=== PATIENT | female | born 1975 | race Caucasian/White ===

== ENCOUNTER → 2025-09-02 09:46 | Outpatient (REF) | payer BC, SELFPAY | LOC: EMG 09:46 | PROVIDERS: ATTENDING PHYSICIAN Orthopaedic Surgery; FAMILY PHYSICIAN Physician Assistant Medical | DX: M54.12 Radiculopathy, cervical region (principal); R20.0 Anesthesia of skin | CPT/HCPCS: 95886; 95911 ==